=== PATIENT | female | born 1995 | race Two or more races ===

== ENCOUNTER 2020-01-18 08:20 | Emergency (ER) | payer OTHER ==
[~2020-01-18] VITALS: Ht 157.5 cm; Wt 64.9 kg
== END 2020-01-18 13:23 | disposition home or self-care (01) ==
LOC: ER 08:20
DX: K29.60 Other gastritis without bleeding (principal); Z03.818 Encounter for observation for suspected exposure to other biological agents ruled out; R10.13 Epigastric pain

== ENCOUNTER 2021-06-26 23:14 | Emergency (ER) | payer OTHER ==
[~2021-06-26] VITALS: Ht 157.5 cm; Wt 115.7 kg
[2021-06-27] MEDS ORDERED: POLYETHYLENE2500 GM PO (02:44)
[2021-06-27] MEDS ORDERED: CEPHALEXIN500 MG PO (02:44)
[2021-06-27] MEDS ORDERED: TENCON 50-3251 EACH PO (02:45)
== END 2021-06-27 02:59 ==
LOC: ER 23:14
DX: G43.909 Migraine, unspecified, not intractable, without status migrainosus (principal); N39.0 Urinary tract infection, site not specified; R10.9 Unspecified abdominal pain; Z91.013 Allergy to seafood

== ENCOUNTER → 2021-10-11 | Emergency (ER) | payer OTHER ==
[~2021-10-11] VITALS: Ht 157.5 cm; Wt 113.4 kg
[~2021-10-11] MED LIST: ACETAMINOPHEN650 M2 PO; CEPHALEXIN500 MG PO; LEVALBUTER0.63 MG/3 IH; MOLNUPIRAVIR (200 MG PO; MUCINEX DM ER1 EACH PO; POLYETHYLENE2500 GM PO; TENCON 50-3251 EACH PO; ZYRTEC10 M3 PO
== END | disposition home or self-care (01) ==
LOC: ER 01:31
DX: U07.1 COVID-19 (principal); J06.9 Acute upper respiratory infection, unspecified; B34.9 Viral infection, unspecified; Z91.013 Allergy to seafood

== ENCOUNTER 2024-03-27 10:15 | Emergency (ER) | payer OTHER ==
[~2024-03-27] VITALS: Ht 157.5 cm; Wt 115.7 kg
[~2024-03-27 10:15] MED LIST changes: +ACETAMINOPHEN650 M2
[2024-03-27] MEDS ORDERED: LEVALBUTEROL HCL 0.63 MG/3 ML SOLUTION IH ONE (11:00)
[2024-03-27] MEDS ORDERED: METHYLPREDNISOLONE SOD SUCC 40 MG VIAL IM ONE (11:00)
[2024-03-27] MEDS ORDERED: MONTELUKAST SODIUM 10 MG TABLET PO ONE (11:00)
[2024-03-27] MEDS ORDERED: IPRATROPIUM BROMIDE 0.5 MG/2.5 ML AMPUL.NEB IH ONE (11:00)
[2024-03-27 12:28] LABS: HEMATOCRIT 37.8 % (36.0-45.00); HEMOGLOBIN 12.5 g/dL (12.0-15.00); MEAN CELL VOLUME 75.2 fL (80.00-100.00); MEAN CORPUSCULAR HEMOGLOBIN 24.8 pg (27.00-32.0); PLATELET COUNT 277 K/uL (150-450); RED BLOOD COUNT 5.03 M/uL (4.00-6.00); RED CELL DISTRIBUTION WIDTH 16.3 % (11.5-14.5)
[2024-03-27 15:07] LABS: ABG PH 7.426 (7.35-7.45); ABG PO2 103.6 mmHg (80-100); ABG pCO2 43.9 mmHg (35-45); BASE EXCESS 3.3 mmol/l; BICARBONATE 28.2 mmol/l (23-25); SaO2 98.1 %; Tco2 29.6 mmol/l
[2024-03-27 15:08] LABS: allen test SATISFACTORY; o2 21 %; puncture site RADIAL RIGHT
[2024-03-27] MEDS ORDERED: LEVALBUTER0.63 MG/3 IH (15:15)
[2024-03-27] MEDS ORDERED: MONTELUKAST SODI4 M1 PO (15:15)
== END 2024-03-27 16:35 | disposition home or self-care (01) ==
LOC: ER 10:17
PROVIDERS: General Practice
DX: J45.901 Unspecified asthma with (acute) exacerbation (principal); Z91.013 Allergy to seafood

== ENCOUNTER 2024-05-23 08:47 | Emergency (ER) | payer OTHER ==
[~2024-05-23] VITALS: Ht 157.5 cm; Wt 118.8 kg
[~2024-05-23 08:47] MED LIST changes: +MONTELUKAST SODI4 M1 PO
[2024-05-23] MEDS ORDERED: MONTELUKAST SODIUM 10 MG TABLET PO ONE (09:15)
[2024-05-23 10:43] LABS: HEMATOCRIT 39.5 % (36.0-45.00); HEMOGLOBIN 12.5 g/dL (12.0-15.00); MEAN CELL VOLUME 77.2 fL (80.00-100.00); MEAN CORPUSCULAR HEMOGLOBIN 24.4 pg (27.00-32.0); MEAN CORPUSCULAR HGB CONC 31.7 g/dl (32.0-36.0); PLATELET COUNT 278 K/uL (150-450); RED BLOOD COUNT 5.12 M/uL (4.00-6.00); RED CELL DISTRIBUTION WIDTH 16.5 % (11.5-14.5)
[2024-05-23] MEDS ORDERED: BENZONATATE200 M1 PO (11:39)
[2024-05-23] MEDS ORDERED: SINGULAIR10 MG PO (11:39)
[2024-05-23] MEDS ORDERED: PEPCID AC20 MG PO (11:39)
== END 2024-05-23 12:02 | disposition home or self-care (01) ==
LOC: ER 08:49
PROVIDERS: General Practice
DX: B34.9 Viral infection, unspecified (principal); J00 Acute nasopharyngitis [common cold]; Z20.822 Contact with and (suspected) exposure to COVID-19; Z91.013 Allergy to seafood

== ENCOUNTER 2024-08-28 08:42 | Emergency (ER) | payer OTHER ==
[~2024-08-28] VITALS: Ht 157.5 cm; Wt 120.7 kg
[~2024-08-28 08:42] MED LIST changes: +BENZONATATE200 M1 PO; +PEPCID AC20 MG PO; +SINGULAIR10 MG PO
[2024-08-28] MEDS ORDERED: LEVOTHYROXINE25 MCG PO (10:01)
[2024-08-28] MEDS ORDERED: KETOROLAC TROMETHAMINE 60 MG VIAL IM ONE ×2 (10:30→11:13)
[2024-08-28] MEDS ORDERED: ORPHENADRINE CITRATE 30 MG/ML AMPUL IM ONE (10:30)
[2024-08-28] MEDS ORDERED: ORPHENADRINE CITRATE 30 MG/ML AMPUL ONE (11:13)
[2024-08-28] MEDS ORDERED: KETO10TA2 PO (12:15)
[2024-08-28] MEDS ORDERED: NORFLEX100MG PO (12:15)
== END 2024-08-28 12:38 | disposition home or self-care (01) ==
LOC: ER 08:42
DX: G89.11 Acute pain due to trauma (principal); M25.562 Pain in left knee; E03.8 Other specified hypothyroidism; Z91.013 Allergy to seafood

== ENCOUNTER 2025-02-20 05:58 | Emergency (ER) | payer OTHER ==
[~2025-02-20] VITALS: Ht 157.5 cm; Wt 122.9 kg
[~2025-02-20 05:58] MED LIST changes: +KETO10TA2 PO; +LEVOTHYROXINE25 MCG PO; +NORFLEX100MG PO
[2025-02-20] MEDS ORDERED: KETOROLAC TROMETHAMINE 30 MG VIAL IU ONE (07:15)
[2025-02-20] MEDS ORDERED: 0.9 % SODIUM CHLORIDE 1,000 ML IV SCH (07:15)
[2025-02-20] MEDS ORDERED: ACETAMINOPHEN 500 MG GEL..CAP PO ONE (07:15)
[2025-02-20] MEDS ORDERED: FAMOtidine 10 MG/ML (4ML VIAL) IV PUSH ONE (07:15)
[2025-02-20 08:53] LABS: BASO % 0.2 % (0.1-1.2); EOS # 0.25 (0.04-0.54); EOS % 2.9 % (0.7-7.0); LYMPH # 2.87 (1.18-3.74); LYMPH % 33.2 % (19.3-53.1); MEAN PLATELET VOLUME 10.10 fl (9.4-12.4); MONO # 0.51 (0.24-0.82); MONO % 5.9 % (4.7-12.5); NEUT # 4.94 (1.56-6.13); NEUT % 57.1 % (34.0-71.1); RED CELL DISTRIBUTION WIDTH 14.9 % (11.6-14.4)
[2025-02-20 09:30] LABS: ALT/SGPT 65 U/L (12-78); AST/SGOT 51 U/L (15-37); BILIRUBIN TOTAL 0.53 mg/dL (0.3-1.2); BUN CREA RATIO 16 (7.0-25.0); CREATININE SERUM 0.87 mg/dL (0.55-1.02); GFR 78.10; GLOBULINA 3.7 G/DL (2.4-3.5); GLUCOSE FASTING 113 mg/dL (65-100); HCG QUANTITATIVE < 1 mUI/mL (1-3); OSMOLALITY SERUM 284 MOSM/KG (275-295)
[2025-02-20 09:32] LABS: URINE APPEARANCE Cloudy; URINE BILIRRUBIN Small (NEGATIVE); URINE BLOOD Large; URINE COLOR Orange; URINE GLUCOSE Negative (NEGATIVE); URINE KETONE Negative (NEGATIVE); URINE LEUKOCYTE Small; URINE NITRATE Negative; URINE UROBILINOGEN 1.0 E.U./dl
[2025-02-20 09:36] LABS: URINE BACTERIA 3244.7 uL (0.0-1933); URINE EPITHELIAL CELLS 57.9 uL (0.0-38.8); URINE RBC 368.5 uL (0.0-20.8); URINE WBC 80.3 uL (0.0-23.2)
[2025-02-20 09:47] LABS: URINE CAST 0.00 uL (0.0-1.40); URINE PROTEIN 100 (NEGATIVE)
[2025-02-20] MEDS ORDERED: IBU600 MG PO (13:06)
[2025-02-20] MEDS ORDERED: PEPCID AC20 MG PO (13:06)
== END 2025-02-20 13:26 | disposition home or self-care (01) ==
LOC: ER 05:58
PROVIDERS: General Practice
DX: N93.9 Abnormal uterine and vaginal bleeding, unspecified (principal); R10.20 Pelvic and perineal pain unspecified side; E03.8 Other specified hypothyroidism; Z91.013 Allergy to seafood